=== PATIENT | male | born 1960 | race Caucasian/White ===

== ENCOUNTER 2020-09-19 18:05 | Observation (INO) ==
[2020-09-19] MEDS ORDERED: Isovue-370 500 ML BOTTLE IVP ONE (18:34)
[2020-09-19] MEDS ORDERED: Ketorolac 15 MG/ML VIAL IVP ONE (18:35)
[2020-09-19] MEDS ORDERED: Ondansetron 4 MG/2 ML VIAL IVP ONE (18:35)
[2020-09-19] MEDS ORDERED: 0.9 % Sodium Chloride 1,000 ML IVC ONE (18:35)
[2020-09-19 19:35] LABS: Clarity,Urine Cloudy (Clear); Color,Urine Orange (Yellow)
[2020-09-19 19:39] LABS: Bacteria,Urine Few per hpf (None-Few)
[2020-09-19] MEDS ORDERED: cefTRIAXone 1,000 MG in 0.9 % Sodium Chloride Mini Bag 100 ML IVPB ONE (21:04)
[2020-09-19] MEDS ORDERED: *HR* HYDROmorphone (PF) 1 MG/ML SYRINGE IVP ONE (22:07)
[2020-09-19] MEDS ORDERED: Naloxone 0.4 MG/ML INJ IVP PRN (22:08)
[2020-09-19] MEDS ORDERED: Ondansetron 4 MG/2 ML VIAL IVP PRN (22:08)
[2020-09-20] MEDS: Acetaminophen IV 1,000 MG/100 ML BAG IVPB SCH ×4 (01:02→20:11)
[2020-09-20 03:26] LABS: Hematocrit 48.6 % (37.5-50.1); Mean Corpuscular HGB Conc 32.9 g/dL (31.6-35.5); Mean Corpuscular Hemoglobin 31.1 pg (28.0-33.3); Mean Corpuscular Volume 94.6 fL (83.0-100.0); Platelet Count 224 K/mcL (140-400); Red Blood Count 5.14 M/mcL (4.19-5.50); Red Cell Distribution Width 11.9 % (11.5-14.5); White Blood Count 9.1 K/mcL (4.3-11.1)
[2020-09-20 03:49] LABS: BUN/Creatinine Ratio 18 (6-26); Blood Urea Nitrogen 15 mg/dL (6-20); Calcium 8.5 mg/dL (8.6-10.3); Carbon Dioxide 25 mEq/L (23-29); Chloride 109 mEq/L (98-107); Chol/HDL Ratio 3.2 (0-4.9); Cholesterol 120 mg/dL (< 200); Glucose 97 mg/dL (70-105); HDL Cholesterol 38 mg/dL (40-59); LDL Cholesterol,Calculated 60 mg/dL (< 100); Osmolality,Calculated 291 (280-300); Potassium 3.8 mEq/L (3.5-5.1); Sodium 140 mEq/L (136-145); Triglycerides 111 mg/dL (< 150); eGFR For African Americans > 60 (> 60); eGFR For Non-African Americans > 60 (> 60)
[2020-09-20] MEDS ORDERED: cefTRIAXone 1,000 MG in 0.9 % Sodium Chloride Mini Bag 100 ML IVPB SCH (09:00)
[2020-09-20] MEDS ORDERED: lisinopriL 20 MG TABLET PO SCH (09:00)
[2020-09-20 12:11] LABS: Adenovirus Not Detected (Not Detect); Coronavirus 229E Not Detected (Not Detect); Coronavirus HKU1 Not Detected (Not Detect); Coronavirus NL63 Not Detected (Not Detect); Coronavirus OC43 Not Detected (Not Detect); Human Metapneumovirus Not Detected (Not Detect); Human Rhinovirus/Enterovirus Not Detected (Not Detect); Influenza A Subtype 2009 H1 Not Detected (Not Detect); SARS-CoV-2 Not Detected (Not Detect)
[2020-09-20 12:12] LABS: Bordetella Pertussis Not Detected (Not Detect); Chlamydophila pneumoniae Not Detected (Not Detect); Influenza B Not Detected (Not Detect); Mycoplasma pneumoniae Not Detected (Not Detect); Parainfluenza Virus 1 Not Detected (Not Detect); Parainfluenza Virus 2 Not Detected (Not Detect); Parainfluenza Virus 3 Not Detected (Not Detect); Parainfluenza Virus 4 Not Detected (Not Detect); Respiratory Syncytial Virus Not Detected (Not Detect)
[2020-09-20] MEDS ORDERED: *HR* OxyCODONE Immed Rel 5 MG TABLET PO PRN (15:57)
[2020-09-20] MEDS ORDERED: Ondansetron 4 MG/2 ML VIAL IVP PRN (15:57)
[2020-09-20] MEDS ORDERED: Isovue-300 50ML VIAL ONE (16:04)
[2020-09-20] MEDS ORDERED: *HR* Rocuronium Bromide 50 MG/5 ML VIAL ONE (16:06)
[2020-09-20] MEDS ORDERED: *HR* Propofol 200 MG/20 ML VIAL IVP ONE (16:06)
[2020-09-20] MEDS ORDERED: *HR* FentaNYL (PF) 100 MCG/2 ML VIAL ONE (16:06)
[2020-09-20] MEDS ORDERED: Lidocaine -MPF 2% 2 ML VIAL ONE (16:06)
[2020-09-20] MEDS ORDERED: *HR* Midazolam HCl 2 MG/2 ML VIAL ONE (16:06)
[2020-09-20] MEDS ORDERED: Dexamethasone 4 MG/ML VIAL ONE ×2 (16:06→16:54)
[2020-09-20] MEDS ORDERED: *HR* Succinylcholine 200 MG/10 ML VIAL IVP ONE (16:06)
[2020-09-20] MEDS: *HR* Heparin 5,000 UNIT/ML VIAL SQ SCH (20:11)
[2020-09-20] MEDS: 0.9 % Sodium Chloride 1,000 ML IVC SCH (20:12)
[2020-09-21] MEDS: Acetaminophen IV 1,000 MG/100 ML BAG IVPB SCH ×2 (00:04→05:58)
[2020-09-21 02:35] LABS: Hematocrit 49.3 % (37.5-50.1); Hemoglobin 16.4 g/dL (12.9-16.9); Mean Corpuscular HGB Conc 33.3 g/dL (31.6-35.5); Mean Corpuscular Hemoglobin 31.5 pg (28.0-33.3); Mean Corpuscular Volume 94.8 fL (83.0-100.0); Mean Platelet Volume 11.1 fL (9.4-12.4); Platelet Count 258 K/mcL (140-400); Red Cell Distribution Width 11.7 % (11.5-14.5); White Blood Count 8.5 K/mcL (4.3-11.1)
[2020-09-21 02:55] LABS: Magnesium 1.9 mg/dL (1.6-2.6); Phosphorous 2.6 mg/dL (2.7-4.5)
[2020-09-21 02:57] LABS: BUN/Creatinine Ratio 18 (6-26); Blood Urea Nitrogen 16 mg/dL (6-20); Calcium 9.1 mg/dL (8.6-10.3); Carbon Dioxide 26 mEq/L (23-29); Chloride 105 mEq/L (98-107); Glucose 135 mg/dL (70-105); Osmolality,Calculated 287 (280-300); Potassium 4.3 mEq/L (3.5-5.1); Sodium 137 mEq/L (136-145); eGFR For African Americans > 60 (> 60); eGFR For Non-African Americans > 60 (> 60)
[2020-09-21] MEDS: 0.9 % Sodium Chloride 1,000 ML IVC SCH (05:59)
[2020-09-21] MEDS: *HR* Heparin 5,000 UNIT/ML VIAL SQ SCH (05:59)
[2020-09-21 07:06] VITALS: BP 136/81
[2020-09-21] MEDS ORDERED: amLODIPine 5 MG TABLET PO SCH (09:00)
[2020-09-23 06:39] LABS: Calculi Mass 27 mg
== END 2020-09-21 10:04 | disposition home or self-care (01) ==
LOC: EMEROOARM 18:05 → 3BNU 18:05 → SUATTDRO 21:09 → 3BNU 21:59
PROVIDERS: ADMIT Internal Medicine; ATTEND Internal Medicine